=== PATIENT | female | born 1940 | race Caucasian/White ===

== ENCOUNTER 2018-08-25 06:35 | Day surgery (SDC) | payer OTHER ==
[2018-08-25 07:07] VITALS: BMI 29.0
[2018-08-25] MEDS ORDERED: ePHEDrine SULFATE 50 MG/1 ML AMPULE ONE ×2 (07:10→07:11)
[2018-08-25] MEDS ORDERED: PROPOFOL 20 ML ONE (07:10)
[2018-08-25] MEDS ORDERED: PHENYLEPHRINE HCL 10 MG/1 ML SINGLE DOSE VIAL ONE (07:11)
[2018-08-25] MEDS ORDERED: MIDAZOLAM HCL 2 MG/2 ML SINGLE DOSE VIAL ONE (07:11)
[2018-08-25] MEDS ORDERED: LIDOCAINE HCL/PF 2% SDV 5ML VIAL ONE (07:11)
[2018-08-25] MEDS ORDERED: ceFAZolin SODIUM 1 GM VIAL ONE (07:11)
[2018-08-25] MEDS ORDERED: SUCCINYLCHOLINE CHLORIDE 200 MG/10 ML VIAL ONE (07:12)
[2018-08-25] MEDS ORDERED: LIDOCAINE HCL 2% (20ML MULTI-DOSE VIAL) NR ONE (07:16)
[2018-08-25] MEDS ORDERED: LIDOCAINE HCL 2% (50ML VIAL) NR ONE (08:24)
[2018-08-25] MEDS ORDERED: oxyCODONE HCL 5 MG TABLET PO PRN ×2 (09:22)
[2018-08-25] MEDS ORDERED: ONDANSETRON 4 MG/2 ML VIAL IVPUSH PRN (09:22)
[2018-08-25] MEDS ORDERED: ACETAMINOPHEN 325 MG TABLET (FP) PO PRN (09:22)
[2018-08-25] MEDS ORDERED: LACTATED RINGERS SOLUTION 1,000 ML IV SCH (09:30)
[2018-08-25 13:25] VITALS: TEMP 97.6
[2018-08-25 13:30] VITALS: BP 136/60; PULSE 63
--- NOTE | 2018-08-25 20:03 | OP ---
DATE OF OPERATION: 08/25/2018 PREOPERATIVE DIAGNOSIS: Left carpal tunnel syndrome. POSTOPERATIVE DIAGNOSIS: Left carpal tunnel syndrome. PROCEDURE: Left carpal tunnel release. ANESTHESIA: Local with sedation. COMPLICATIONS: None. ESTIMATED BLOOD LOSS: Minimal. INDICATIONS FOR PROCEDURE: The patient is a 77-year-old female with the above finding indicated for operative treatment. Risks, benefits, and alternatives were discussed with her and her at length and proper informed consent was obtained. DESCRIPTION OF PROCEDURE: After proper identification of the patient and the correct operative site, the patient was brought to the operating room and placed supine on the operative table. All bony prominences were well padded. Sedation was given with local anesthesia. The left upper extremity was prepped and draped in the usual sterile fashion. Well-padded tourniquet was placed over the sterile prep. Esmarch bandage was used to exsanguinate the left upper extremity. Tourniquet was inflated to 250 mmHg. Longitudinal incision was made to the proximal aspect of the palm and incision was taken sharply through the skin with blunt and sharp dissection of the subcutaneous tissues. Palmar fascia was divided longitudinally. Transcarpal ligament was divided longitudinally with the distal 4 cm of antebrachial fascia under direct visualization and Loupe magnification. This provided complete release of the median nerve at the wrist. Wound was irrigated with saline and repaired with a 5-0 nylon suture. Sterile dressings were applied. Splint was placed due to the patient's need to use this arm for weightbearing. Patient was reversed from anesthesia and brought to the recovery room in stable condition. She tolerated the procedure well. Juani [id number]
== END 2018-08-25 09:30 | disposition home or self-care (01) ==
LOC: FASU 06:35
PROVIDERS: ATTEND Orthopaedic Surgery Hand Surgery
PROC: 01N50ZZ Release Median Nerve, Open Approach (ICD-10-PCS; principal; 2018-08-25 08:26)
DX: G56.02 Carpal tunnel syndrome, left upper limb (principal)
CPT/HCPCS: 82962